=== PATIENT | female | born 2000 | race Caucasian/White ===

== ENCOUNTER 2021-02-19 00:44 | Emergency (ER) | payer MEDICAID ==
[~2021-02-19] VITALS: Ht 185.4 cm; Wt 104.5 kg
[~2021-02-19 00:44] MED LIST: NO HOME MEDS
[2021-02-19] MEDS ORDERED: morphine 4 MG/ML inj SYRINge IM ONE (01:30)
[2021-02-19] MEDS ORDERED: ondansetron 4mg rapidly disintigrating tab PO ONE (01:30)
[2021-02-19] MEDS ORDERED: ketorolac trometh inj. 60 MG/2 ML VIAL IM ONE (01:30)
[2021-02-19 02:46] VITALS: BP 131/63
== END 2021-02-19 02:53 | disposition home or self-care (01) ==
LOC: ER 00:46
DX: M79.18 Myalgia, other site (principal); R60.9 Edema, unspecified; Z98.890 Other specified postprocedural states
CPT/HCPCS: 73502; 96372; 99284; J1885; J2270

== ENCOUNTER 2023-07-17 12:57 | Emergency (ER) | payer MEDICAID ==
[~2023-07-17] VITALS: Ht 185.4 cm; Wt 86.8 kg
[2023-07-17 13:58] VITALS: BP 126/72; PULSE 53; RESP 17; O2SAT 100
[2023-07-17 14:04] VITALS: TEMP 98
== END 2023-07-17 14:19 | disposition home or self-care (01) ==
LOC: ER 12:57
DX: R06.4 Hyperventilation (principal); Z87.81 Personal history of (healed) traumatic fracture; Z79.899 Other long term (current) drug therapy
CPT/HCPCS: 93005; 99283